=== PATIENT | female | born 1965 | race Caucasian/White ===

== ENCOUNTER 2017-09-19 13:47 | Observation (INO) | payer BC, OTHER ==
[2017-09-19] MEDS ORDERED: TORAdol 30 mg Injection IV ONE (14:09)
--- NOTE | 2017-09-19 14:16 | ERPHSYRPT ---
- History of Present Illness Time Seen by Provider: 09/19/17 14:00 Historian: patient Exam Limitations: no limitations Patient Subjective Stated Complaint: Pt states she started having pain in her shoulders last night. She started having chest pain this morning that radiated into her shoulders and arms. She feels like she might be a little short of breath. She was not doing anything physical when the pain started. She went to Dr. Bryant office and he recommended she be evaluated in the ER. Triage Nursing Assessment: Pt alert and oriented x3. skin pink warm and dry. afebrile. heart tones RRR. no edema noted. lung sounds clear Physician History: 52 y/o female with history of SVT comes to the ER with complaints of chest pain that started this morning. Pt describes the pain as pressure like, constant, 8/ 10, with radiation to bilateral shoulders and not relieved by tylenol. Pt also admits to shortness of breath, but denies any fever, chills, cough, palpitations , abdominal pain, nausea or vomiting. Last stress test was 2 years ago. Timing/Duration: today Activities at Onset: none Quality: pressure Location: substernal Severity of Pain-Max: severe Severity of Pain-Current: severe Modifying Factors: Improves With: nothing Associated Symptoms: shortness of breath Prior Chest Pain/Cardiac Workup: cardiac cath Nitro Today/Relief: no nitro taken today Aspirin Treatment Today: no aspirin today Allergies/Adverse Reactions: No Known Drug Allergies Allergy (Unverified 09/17/13 08:24) Home Medications: Digoxin 0.125 mg Tablet [Lanoxin 0.125MG TABLET] 0.125 mg PO DAILY [History] Famotidine 20 mg [Pepcid 20 MG] 20 mg PO DAILY 09/17/13 [History] Losartan/Hydrochlorothiazide [Losartan-Hctz 50-12.5 mg Tab] 1 each PO DAILY [History] Metformin HCl 500 mg [Glucophage 500 MG] 1,000 mg PO BID 09/17/13 [History ] Alprazolam 0.25 mg [xanAX 0.25 MG] 0.25 mg PO HS 09/19/17 [History] Aspirin EC 81 mg [Ecotrin 81 mg] 81 mg PO DAILY 09/19/17 [History] Atorvastatin Calcium [Lipitor] 10 mg PO QPM 09/19/17 [History] Calcium Carbonate/Vitamin D3 [Calcium 600 + Vit D Caplet] 1 each PO DAILY [History] Cholecalciferol (Vitamin D3) [Vitamin D3] 3,000 unit PO DAILY 09/19/17 [History] Duloxetine HCl 30 mg [Cymbalta 30 MG Capsule] 90 mg PO DAILY 09/19/17 [ History] Gabapentin [Neurontin] 300 mg PO TID 09/19/17 [History] Insulin Aspart [NovoLOG Insulin] 8 unit SQ UD 09/19/17 [History] Loratadine 10 mg [Claritin 10 mg] 10 mg PO DAILY 09/19/17 [History] Naproxen 500 mg [Naprosyn 500 MG] 500 mg PO BID 09/19/17 [History] PANTOPRAZOLE 40 mg Tablet [Protonix 40MG Tablet] 40 mg PO DAILY 09/19/17 [ History] Hx Tetanus, Diphtheria Vaccination/Date Given: Yes Hx Influenza Vaccination/Date Given: Yes Hx Pneumococcal Vaccination/Date Given: Yes - Review of Systems Constitutional: No Fever, No Chills Eyes: No Symptoms Ears, Nose, & Throat: No Symptoms Respiratory: Dyspnea, Dyspnea on Exertion (CARPIO), No Cough Cardiac: Chest Pain, No Edema, No Syncope Abdominal/Gastrointestinal: No Abdominal Pain, No Nausea, No Vomiting, No Diarrhea Genitourinary Symptoms: No Dysuria Musculoskeletal: Back Pain, No Neck Pain Skin: No Rash Neurological: No Dizziness, No Focal Weakness, No Sensory Changes Psychological: No Symptoms Endocrine: No Symptoms All Other Systems: Reviewed and Negative - Past Medical History Pertinent Past Medical History: Yes Neurological History: No Pertinent History ENT History: No Pertinent History Cardiac History: Angina, Arrhythmia, Hypertension Respiratory History: Pneumonia Endocrine Medical History: Diabetes Type II Musculoskeletal History: Osteoarthritis GI Medical History: No Pertinent History History: No Pertinent History Psycho-Social History: No Pertinent History Female Reproductive Disorders: No Pertinent History Other Medical History: SVT, poss fibromyalgia - Past Surgical History Past Surgical History: Yes Neuro Surgical History: No Pertinent History Cardiac: Cardiac Catheterization Respiratory: No Pertinent History Gastrointestinal: No Pertinent History Genitourinary: No Pertinent History Musculoskeletal: No Pertinent History Female Surgical History: Hysterectomy Other Surgical History: left heel debridement - Social History Smoking Status: Never smoker Exposure to second hand smoke: Yes Drug Use: none Patient Lives Alone: Yes - Female History Hx Now: No - Nursing Vital Signs Nursing Vital Signs: Initial Vital Signs Temperature 98.4 F 09/19/17 13:48 Pulse Rate 82 09/19/17 13:48 Respiratory Rate 22 09/19/17 13:48 Blood Pressure 120/67 09/19/17 13:48 O2 Sat by Pulse Oximetry 98 09/19/17 13:48 Pain Scale Pain Intensity 10 - Physical Exam General Appearance: mild distress, alert, anxiety Eye Exam: PERRL/EOMI, eyes nml inspection Ears, Nose, Throat Exam: normal ENT inspection, moist mucous membranes Neck Exam: normal inspection, non-tender, supple, full range of motion Respiratory Exam: normal breath sounds, chest tenderness, lungs clear, No respiratory distress Cardiovascular Exam: regular rate/rhythm, normal heart sounds, normal peripheral pulses Gastrointestinal/Abdomen Exam: soft, No tenderness, No mass Back Exam: normal inspection, No CVA tenderness, No vertebral tenderness Extremity Exam: normal inspection, normal range of motion Neurologic Exam: alert, oriented x 3, cooperative, normal mood/affect, sensation nml, No motor deficits Skin Exam: normal color, warm, dry SpO2: 98 Oxygen Delivery: Room Air - Course Nursing assessment & vital signs reviewed: Yes EKG Interpreted by Me: RATE, NORMAL AXIS, NORMAL INTERVALS, NORMAL QRS, NORMAL ST-T Ordered Tests: Active Orders 24 hr Category Date Time Status Merchandise Presentation Associate STAT Care 09/19/17 14:09 Active EKG-ER Only STAT Care 09/19/17 14:08 Active IV Insertion STAT Care 09/19/17 14:08 Active CHEST 1 VIEW (PORTABLE) Stat Exams 09/19/17 14:08 Completed CBC W DIFF Stat Lab 09/19/17 14:18 Completed CK-Creatinine Phosphokinase Stat Lab 09/19/17 14:18 Received CMP Stat Lab 09/19/17 14:18 Received D-DIMER QUANTITATION Stat Lab 09/19/17 14:31 Completed NT PRO BNP Stat Lab 09/19/17 14:18 Received PROTIME WITH INR Stat Lab 09/19/17 14:31 Completed PTT Stat Lab 09/19/17 14:31 Completed TROPONIN Q3H Lab 09/19/17 14:36 Received TROPONIN Q3H Lab 09/19/17 16:20 Received TROPONIN Q3H Lab 09/19/17 20:15 Ordered TROPONIN Q3H Lab 09/19/17 23:15 Ordered TROPONIN Q3H Lab 09/20/17 02:15 Ordered Medication Summary Discontinued Medications Generic Name Dose Route Start Last Admin Trade Name Lorin PRN Reason Stop Dose Admin Ketorolac Tromethamine 30 mg 09/19/17 14:09 09/19/17 14:26 Toradol 30 Mg Injection IV 09/19/17 14:10 30 mg STAT ONE Administration Ketorolac Tromethamine Confirm 09/19/17 14:21 Toradol 30 Mg Injection Administered 09/19/17 14:22 Dose 30 mg .ROUTE .STK-MED ONE Morphine Sulfate 4 mg 09/19/17 15:50 09/19/17 15:57 Morphine Sulfate 4 Mg Inj IV 09/19/17 15:51 4 mg STAT ONE Administration Morphine Sulfate Confirm 09/19/17 15:56 Morphine Sulfate 4 Mg Inj Administered 09/19/17 15:57 Dose 4 mg .ROUTE .STK-MED ONE Ondansetron HCl 4 mg 09/19/17 15:50 09/19/17 15:57 Zofran 4 Mg/2 Ml Vial IV 09/19/17 15:51 4 mg STAT ONE Administration Ondansetron HCl Confirm 09/19/17 15:56 Zofran 4 Mg/2 Ml Vial Administered 09/19/17 15:57 Dose 4 mg .ROUTE .STK-MED ONE Lab/Rad Data: Laboratory Result Diagrams 09/19/17 14:18 Laboratory Results 09/19/17 09/19/17 Range/Units 14:31 14:18 WBC 10.7 H (4.0-10.5) K/mm3 RBC 4.85 (4.1-5.4) M/mm3 Hgb 16.2 H (12.0-16.0) gm/dl Hct 47.0 (35-47) % MCV 96.9 (78-100) fl MCH 33.4 H (26-32) pg MCHC 34.5 (32-36) g/dl RDW 13.0 (11.5-14.0) % Plt Count 197 (150-450) K/mm3 MPV 10.8 H (6-9.5) fl Gran % 70.5 H (36.0-66.0) % Eos # (Auto) 0.19 (0-0.5) Absolute Lymphs (auto) 1.83 (1.0-4.6) Absolute Monos (auto) 1.07 (0.0-1.3) Lymphocytes % 17.1 L (24.0-44.0) % Monocytes % 10.0 (0.0-12.0) % Eosinophils % 1.8 (0.00-5.0) % Basophils % 0.6 (0.0-0.4) % Absolute Granulocytes 7.56 H (1.4-6.9) Basophils # 0.06 (0-0.4) PT 13.2 H (9.95-12.35) SECONDS INR 1.19 (0.8-3.0) APTT 33.6 (25.3-37.0) SECONDS D-Dimer 414.77 (215-500) ng/mL - Progress Progress: improved Progress Note: 09/19/17 17:44 The patient is still having chest pain after receiving toradol and morphine. The EKG is normal. Pt has an elevated glucose and will be given a liter of fluids. The rest of the labs are unremarkable. Pt has been admitted to [facility] for chest pain. - Departure Time of Disposition: 17:45 Departure Disposition: In-patient Admission Clinical Impression: Chest pain Qualifiers: Chest pain type: unspecified Qualified Code(s): R07.9 - Chest pain, unspecified Condition: Stable Critical Care Time: No Referrals: CHASITY BLACKBURN MD [Primary Care Provider] -
[2017-09-19] MEDS ORDERED: TORAdol 30 mg Injection ONE (14:21)
[2017-09-19 14:27] LABS: BASOPHIL % 0.6 % (0.0-0.4); Basophil (Absolute #) 0.06 (0-0.4); Eosinophil % 1.8 % (0.00-5.0); Eosinophil (Absolute #) 0.19 (0-0.5); Granulocyte Absolute (ANC) 7.56 (1.4-6.9); Granulocytes % 70.5 % (36.0-66.0); Hemoglobin 16.2 gm/dl (12.0-16.0); Lymphocyte (Absolute #) 1.83 (1.0-4.6); Lymphocytes % 17.1 % (24.0-44.0); Mean Cell Volume 96.9 fl (78-100); Mean Corpuscular Hemoglobin 33.4 pg (26-32); Mean Corpuscular Hgb Concent. 34.5 g/dl (32-36); Mean Platelet Volume 10.8 fl (6-9.5); Monocyte (Absolute #) 1.07 (0.0-1.3); Platelet Count 197 K/mm3 (150-450); Red Blood Count 4.85 M/mm3 (4.1-5.4); White Blood Count 10.7 K/mm3 (4.0-10.5)
--- NOTE | 2017-09-19 14:45 | XRAY ---
Indication: Chest pain. Comparison: February 05, 2014. Portable chest again demonstrates normal heart or lungs. Bony thorax intact.
[2017-09-19 14:49] LABS: INR 1.19 (0.8-3.0)
[2017-09-19 14:51] LABS: D-DIMER QUANTITATION 414.77 ng/mL (215-500)
[2017-09-19 14:52] LABS: PTT 33.6 SECONDS (25.3-37.0)
[2017-09-19] MEDS ORDERED: MORPHINE SULFATE 4 MG INJ IV ONE (15:50)
[2017-09-19] MEDS ORDERED: Zofran 4 MG/2 ML VIAL IV ONE (15:50)
[2017-09-19] MEDS ORDERED: Zofran 4 MG/2 ML VIAL ONE (15:56)
[2017-09-19] MEDS ORDERED: MORPHINE SULFATE 4 MG INJ ONE (15:56)
[2017-09-19] MEDS ORDERED: Sodium Chloride 0.9% 1000 ML 1,000 ML IV STA (17:43)
[2017-09-19] MEDS ORDERED: TYLENOL 325 MG PO PRN (17:46)
[2017-09-19] MEDS ORDERED: MAALOX ES 30 ML UNIT DOSE PO PRN (17:46)
[2017-09-19] MEDS ORDERED: Senokot-S Tablet PO PRN (17:46)
[2017-09-19] MEDS ORDERED: MILK OF MAGNESIA 30 ML PO PRN (17:46)
[2017-09-19] MEDS ORDERED: Zofran 4 MG/2 ML VIAL IV PRN (17:46)
[2017-09-19] MEDS ORDERED: Sodium Chloride 0.9% 1000 ML 1,000 ML ONE (18:36)
[2017-09-19] MEDS ORDERED: TYLENOL 325 MG ONE (20:43)
[2017-09-19 21:47] LABS: ALBUMIN 3.4 g/dL (3.5-5.0); ALKALINE PHOSPHATASE 61 U/L (38-126); ANION GAP 13.8 MEQ/L (5-15); BLOOD UREA NITROGEN 17 mg/dL (7-17); CHLORIDE 98 mmol/L (98-107); Calcium 8.9 mg/dL (8.4-10.2); Carbon Dioxide 28 mmol/L (22-30); Creatinine 1 0.47 mg/dL (0.52-1.04); Glucose 180 mg/dL (74-106); Potassium 4.1 mmol/L (3.5-5.1); SGOT/AST 24 U/L (14-36); SGPT/ALT 38 U/L (0-35); SODIUM 135 mmol/L (137-145); Total Protein 6.1 g/dL (6.3-8.2)
[2017-09-19] MEDS ORDERED: COREG 12.5 MG PO ONE (22:00)
[2017-09-19] MEDS ORDERED: LIPITOR 40MG PO ONE (22:00)
[2017-09-19] MEDS ORDERED: Naprosyn 500 MG PO ONE (22:00)
[2017-09-19] MEDS ORDERED: Zocor 10MG ONE (22:00)
[2017-09-19] MEDS ORDERED: NEURONTIN 300 MG PO ONE (22:00)
[2017-09-19] MEDS ORDERED: xanAX 0.25 MG PO ONE (22:00)
[2017-09-19] MEDS: NovoLIN R SQ PRN (22:17)
[2017-09-20] MEDS: TYLENOL EXTRA STRENGTH 500 MG PO PRN ×3 (01:04→20:26)
[2017-09-20 06:05] LABS: Risk Ratio 3.4
[2017-09-20] MEDS: NovoLIN R SQ PRN ×3 (08:07→23:04)
--- NOTE | 2017-09-20 09:06 | PCM.HP ---
History of Present Illness - Chief Complaint Chief Complaint: chest pain History of Present Illness: is a 52 year old female.came to ER with chest for 3 days duration. C/ O generalised body pain all over - Review of Systems Constitutional: Fatigue, Malaise, No Fever, No Chills Eyes: No Symptoms Ears, Nose, & Throat: No Symptoms Respiratory: No Cough, No Short Of Breath Cardiac: Chest Pain, No Edema, No Syncope Abdominal/Gastrointestinal: No Abdominal Pain, No Nausea, No Vomiting, No Diarrhea Genitourinary Symptoms: No Dysuria Musculoskeletal: No Back Pain, No Neck Pain Skin: No Rash Neurological: No Dizziness, No Focal Weakness, No Sensory Changes Psychological: No Symptoms Endocrine: No Symptoms Hematologic/Lymphatic: No Symptoms Immunological/Allergic: No Symptoms Medications & Allergies Home Medications: Home Medication List Digoxin 0.125 mg Tablet [Lanoxin 0.125MG TABLET] 0.125 mg PO REPLACED BY [facility] 09/17/13 [History Confirmed 09/19/17] Famotidine 20 mg [Pepcid 20 MG] 20 mg PO REPLACED BY [facility] 09/17/13 [History Confirmed 09/19/17] Losartan/Hydrochlorothiazide [Losartan-Hctz 50-12.5 mg Tab] 1 tab PO DAILY 09/17 [History Confirmed 09/19/17] Metformin HCl 500 mg [Glucophage 500 MG] 1,000 mg PO BID 09/17/13 [ History Confirmed 09/19/17] Alprazolam 0.25 mg [xanAX 0.25 MG] 0.25 mg PO 09/19/17 [History Confirmed 09/19/17] Aspirin EC 81 mg [Ecotrin 81 mg] 81 mg PO REPLACED BY [facility] 09/19/17 [History Confirmed 09/19/17] Atorvastatin Calcium [Lipitor] 10 mg PO QPM 09/19/17 [History Confirmed 09/19/17 ] Calcium Carbonate/Vitamin D3 [Calcium 600 + Vit D Caplet] 1 each PO 09/19/17 [History Confirmed 09/19/17] Carvedilol 12.5 mg [Coreg 12.5 mg] 12.5 mg PO BID 09/19/17 [History Confirmed 09/19/17] Cholecalciferol (Vitamin D3) [Vitamin D3] 3,000 unit PO DAILY 09/19/17 [History Confirmed 09/19/17] Duloxetine HCl 30 mg [Cymbalta 30 MG Capsule] 90 mg PO QAM 09/19/17 [ History Confirmed 09/19/17] Gabapentin [Neurontin] 300 mg PO TID 09/19/17 [History Confirmed 09/19/17] Insulin Aspart [NovoLOG Insulin] 8 unit SQ UD 09/19/17 [History Confirmed ] Loratadine 10 mg [Claritin 10 mg] 10 mg PO QAM 09/19/17 [History Confirmed 09/19/17] Naproxen 500 mg [Naprosyn 500 MG] 500 mg PO BID 09/19/17 [History Confirmed 09/19/17] PANTOPRAZOLE 40 mg Tablet [Protonix 40MG Tablet] 40 mg PO QAM 09/19/17 [ History Confirmed 09/19/17] Allergies/Adverse Reactions: Allergies Allergy/AdvReac Type Severity Reaction Status Date / Time No Known Drug Allergies Allergy Unverified 09/17/13 08:24 - Past Medical History Past Medical History: Yes Neurological History: No Pertinent History ENT History: No Pertinent History Cardiac History: Angina, Arrhythmia, Hypertension Respiratory History: Pneumonia Endocrine Medical History: Diabetes Type II Musculoskelatal History: Osteoarthritis GI Medical History: No Pertinent History History: No Pertinent History Pyscho-Social History: No Pertinent History Reproductive Disorders: No Pertinent History Comment: SVT, poss fibromyalgia - Female History Are you now?: No (Hysterectomy) - Past Surgical History Past Surgical History: Yes Neuro Surgical History: No Pertinent History Cardiac History: Cardiac Catheterization Respiratory Surgery: No Pertinent History GI Surgical History: Cholecystectomy Genitourinary Surgical Hx: No Pertinent History Musculskeletal Surgical Hx: No Pertinent History Female Surgical History: Hysterectomy Other Surgical History: left heel debridement - Social History Smoking Status: Never smoker Exposure to second hand smoke: Yes ([id number]) Alcohol: None Drug Use: none - Physical Exam Vital Signs: Vital Signs - 24 hr Temp Pulse Pulse Resp BP Pulse Ox 09/20/17 04:00 98.1 F 73 18 112/72 03/27/18 00:00 98.0 F 81 18 96/55 89 L 09/19/17 21:46 95 09/19/17 20:20 98.4 F 88 18 106/55 95 09/19/17 20:00 99.2 F 88 18 106/55 95 09/19/17 17:46 98 09/19/17 17:46 95 09/19/17 14:47 93 H 16 116/64 96 09/19/17 13:48 98.4 F 83 82 22 120/67 98 Oxygen-Last 24 hours O2 Percentage 2 Liters = 28% Oxygen Flowrate (L/min)-RT 2 Oxygen Flowrate (L/min)-RT 2 Oxygen Flowrate (L/min)-RT 2 Oxygen Flowrate (L/min)-RT 2 General Appearance: no apparent distress, alert Neurologic Exam: alert, oriented x 3, cooperative, normal mood/affect, nml cerebellar function, nml station & gait, sensation nml, No motor deficits Eye Exam: PERRL/EOMI, eyes nml inspection Ears, Nose, Throat Exam: normal ENT inspection, TMs normal, pharynx normal, moist mucous membranes Neck Exam: normal inspection, non-tender, supple, full range of motion Respiratory Exam: normal breath sounds, lungs clear, No respiratory distress Cardiovascular Exam: regular rate/rhythm, normal heart sounds, normal peripheral pulses Gastrointestinal/Abdomen Exam: soft, normal bowel sounds, No tenderness, No mass Back Exam: normal inspection, normal range of motion, No CVA tenderness, No vertebral tenderness Extremity Exam: normal inspection, normal range of motion, pelvis stable Skin Exam: normal color, warm, dry, No rash Lymphatic Exam: No adenopathy Results - Labs Lab/Micro Results: Accuchecks Date 09/19/17 Time 22:00 Accucheck Value: 181 Lab Results-Last 24 Hours 09/19/17 09/19/17 09/19/17 Range/Units 20:20 20:23 23:35 Sodium 135 L (137-145) mmol/L Potassium 4.1 (3.5-5.1) mmol/L Chloride 98 (98-107) mmol/L Carbon Dioxide 28 (22-30) mmol/L Anion Gap 13.8 (5-15) MEQ/L BUN 17 (7-17) mg/dL Creatinine 0.47 L (0.52-1.04) mg/dL Estimated GFR > 60 ML/MIN Glucose 180 H (74-106) mg/dL Calcium 8.9 (8.4-10.2) mg/dL Total Bilirubin 2.70 H (0.2-1.3) mg/dL AST 24 (14-36) U/L ALT 38 H (0-35) U/L Alkaline Phosphatase 61 (38-126) U/L Troponin I < 0.012 < 0.012 (0.000-0.034) ng/mL Serum Total Protein 6.1 L (6.3-8.2) g/dL Albumin 3.4 L (3.5-5.0) g/dL Triglycerides (30-150) mg/dL Cholesterol (50-200) mg/dL LDL Cholesterol (30-100) mg/dL HDL Cholesterol (40-60) mg/dL Heart Disease Risk Ratio 09/20/17 09/20/17 Range/Units 02:40 05:15 Sodium (137-145) mmol/L Potassium (3.5-5.1) mmol/L Chloride (98-107) mmol/L Carbon Dioxide (22-30) mmol/L Anion Gap (5-15) MEQ/L BUN (7-17) mg/dL Creatinine (0.52-1.04) mg/dL Estimated GFR ML/MIN Glucose (74-106) mg/dL Calcium (8.4-10.2) mg/dL Total Bilirubin (0.2-1.3) mg/dL AST (14-36) U/L ALT (0-35) U/L Alkaline Phosphatase (38-126) U/L Troponin I < 0.012 (0.000-0.034) ng/mL Serum Total Protein (6.3-8.2) g/dL Albumin (3.5-5.0) g/dL Triglycerides 100 (30-150) mg/dL Cholesterol 100 (50-200) mg/dL LDL Cholesterol 47 (30-100) mg/dL HDL Cholesterol 29 L (40-60) mg/dL Heart Disease Risk Ratio 3.4 Accuchecks Date 09/19/17 Time 22:00 Accucheck Value: 181 - Other Procedures and Tests Respiratory Therapy 09/20/17 01:45 EKG ROUTINE 09/21/17 05:00 EKG ROUTINE 09/22/17 05:00 EKG ROUTINE 09/23/17 05:00 EKG ROUTINE Assessment/Plan (1) Chest pain Current Visit: Yes Status: Acute Qualifiers: Chest pain type: unspecified Qualified Code(s): R07.9 - Chest pain, unspecified Code(s): R07.9 - CHEST PAIN, UNSPECIFIED (2) Diabetes mellitus type 2 Current Visit: No Status: Chronic Code(s): E11.9 - TYPE 2 DIABETES MELLITUS WITHOUT COMPLICATIONS (3) Hypertensive disorder, systemic arterial Current Visit: Yes Status: Chronic Code(s): I27.2 - OTHER SECONDARY PULMONARY HYPERTENSION * DO NOT USE *
[2017-09-20] MEDS ORDERED: FLUCELVAX QUAD 2017-2018 SYR IM ONE (10:00)
[2017-09-20] MEDS ORDERED: Glucophage 500 MG PO SCH (10:00)
[2017-09-20] MEDS ORDERED: Ecotrin 325 MG PO SCH (10:00)
[2017-09-20] MEDS ORDERED: NON-FORMULARY ITEM (Losartan/Hydrochlorothiazide [Losartan-Hctz 50-12.5 Mg Tab] 1 TAB) PO SCH (10:00)
[2017-09-20] MEDS ORDERED: CHOLECALCIFEROL 3000 UNIT PO SCH (10:00)
[2017-09-20] MEDS: hydroDIURIL 25 MG PO SCH (10:49)
[2017-09-20] MEDS: CLARITIN 10 MG PO SCH (10:49)
[2017-09-20] MEDS: Naprosyn 500 MG PO SCH ×2 (10:49→23:03)
[2017-09-20] MEDS: HOLD METFORMIN PRODUCTS FOR 48 HOURS MC SCH (10:49)
[2017-09-20] MEDS: ECOTRIN 81 MG PO SCH (10:49)
[2017-09-20] MEDS: Cymbalta 30 MG Capsule PO SCH (10:49)
[2017-09-20] MEDS: Cozaar 50 MG PO SCH (10:49)
[2017-09-20] MEDS: Pepcid 20 MG PO SCH (10:50)
[2017-09-20] MEDS: NEURONTIN 300 MG PO SCH ×3 (10:50→23:04)
[2017-09-20] MEDS: Protonix 40MG Tablet PO SCH (10:50)
[2017-09-20] MEDS: VITAMIN D PO SCH (10:50)
--- NOTE | 2017-09-20 12:44 | XRAY ---
Indication: Pain and nausea. Multiple contiguous axial images obtained through the abdomen and pelvis using 80 cc Isovue 370 contrast only. Comparison: None Lung bases demonstrates mild bibasilar dependent atelectasis with tiny effusions. Heart is not enlarged. Noncontrasted stomach and bowel loops appear nonobstructed. There is mild diffuse scattered colonic fecal debris throughout. Normal appendix. Mild sigmoid diverticulosis without diverticulitis. No free fluid/air. Right kidney demonstrates a few patchy areas of cortical hypoattenuation/edema favoring pyelonephritis. No suspicious renal mass, hydronephrosis, or hydroureter. 2.5 cm noncalcified right adrenal gland mass. Mild fatty liver. Previous cholecystectomy and hysterectomy. Remaining liver, pancreas, spleen, left adrenal gland, left kidney, left ureter, bladder, and aorta appear unremarkable. No pathologic retroperitoneal lymphadenopathy. Osseous structures intact. Impression: 1. Right renal cortical patchy hypoattenuations/edema favoring pyelonephritis. 2. Fecal stasis without obstruction. Sigmoid diverticulosis without diverticulitis. 3. Fatty liver. 4. 2.5 cm noncalcified right adrenal gland mass. Findings possibly adenoma. Noncontrasted exam could confirm. CT DI 23.68
[2017-09-20] MEDS: NovoLOG Insulin SQ SCH ×2 (13:28→17:16)
[2017-09-20] MEDS: Lanoxin 0.125MG TABLET PO SCH (13:30)
[2017-09-20] MEDS: COREG 12.5 MG PO SCH ×2 (13:34→23:03)
[2017-09-20] MEDS ORDERED: Sodium Chloride 0.9% 1000 ML 1,000 ML ONE (17:33)
[2017-09-20 19:31] LABS: Appearance CLOUDY (CLEAR); Bilirubin NEGATIVE (NEGATIVE); Blood 50 Ery/ul (0-5); Glucose 250 mg/dL (NEGATIVE); Ketones NEGATIVE (NEGATIVE); Leukocyte Esterase 1+ (NEGATIVE); Nitrite NEGATIVE (NEGATIVE); Protein,Urine Dip NEGATIVE (Negative); Specific Gravity 1.015 (1.005-1.025); Urobilinogen 4 mg/dL (0-1)
[2017-09-20 19:32] LABS: Bacteria PACKED /HPF (NEGATIVE); Epithelial Cells MODERATE /HPF (FEW); Mucus MODERATE /HPF (NEGATIVE); WBC 25-50 /HPF (0-5)
[2017-09-20] MEDS ORDERED: Levofloxacin 500MG/100ML D5W 500 MG/100 ML BAG IV SCH (20:00)
[2017-09-20] MEDS ORDERED: VITAMIN D3 PO SCH (22:00)
[2017-09-20] MEDS ORDERED: CALCIUM CARBONATE PO SCH (22:00)
[2017-09-20] MEDS ORDERED: NON-FORMULARY ITEM (Atorvastatin Calcium [Lipitor] 10 MG) PO SCH (22:00)
[2017-09-20] MEDS ORDERED: Zocor 10MG PO ONE (22:00)
[2017-09-20] MEDS: Calcium 500MG W/Vit D Tablet PO SCH (23:03)
[2017-09-20] MEDS: xanAX 0.25 MG PO SCH (23:04)
[2017-09-20] MEDS: Zocor 10MG PO SCH (23:04)
[2017-09-21] MEDS: Sodium Chloride 0.9% 1000 ML 1,000 ML IV SCH ×3 (03:51→16:54)
[2017-09-21] MEDS: NovoLIN R SQ PRN ×4 (08:04→23:36)
[2017-09-21] MEDS: NovoLOG Insulin SQ SCH ×3 (08:04→16:50)
[2017-09-21] MEDS: Levofloxacin 500MG/100ML D5W 500 MG/100 ML BAG IV SCH (10:01)
[2017-09-21] MEDS: Cozaar 50 MG PO SCH (10:02)
[2017-09-21] MEDS: NEURONTIN 300 MG PO SCH ×3 (10:02→22:05)
[2017-09-21] MEDS: VITAMIN D PO SCH (10:02)
[2017-09-21] MEDS: Lanoxin 0.125MG TABLET PO SCH (10:02)
[2017-09-21] MEDS: Pepcid 20 MG PO SCH (10:02)
[2017-09-21] MEDS: ECOTRIN 81 MG PO SCH (10:02)
[2017-09-21] MEDS: Cymbalta 30 MG Capsule PO SCH (10:02)
[2017-09-21] MEDS: Naprosyn 500 MG PO SCH ×2 (10:02→22:03)
[2017-09-21] MEDS: CLARITIN 10 MG PO SCH (10:02)
[2017-09-21] MEDS: Protonix 40MG Tablet PO SCH (10:02)
[2017-09-21] MEDS: TYLENOL EXTRA STRENGTH 500 MG PO PRN ×2 (10:03→22:04)
[2017-09-21] MEDS: hydroDIURIL 25 MG PO SCH (10:09)
[2017-09-21] MEDS: HOLD METFORMIN PRODUCTS FOR 48 HOURS MC SCH (10:09)
[2017-09-21] MEDS: COREG 12.5 MG PO SCH ×2 (10:10→22:03)
--- NOTE | 2017-09-21 12:16 | PCM.NOTE ---
Date and Time: 09/21/17 1215 Subjective Assessment: doing better - Review of Systems Constitutional: No Fever, No Chills Eyes: No Symptoms Ears, Nose, & Throat: No Symptoms Respiratory: No Cough, No Short Of Breath Cardiac: No Chest Pain, No Edema, No Syncope Abdominal/Gastrointestinal: No Abdominal Pain, No Nausea, No Vomiting, No Diarrhea Genitourinary Symptoms: No Dysuria Musculoskeletal: No Back Pain, No Neck Pain Skin: No Rash Neurological: No Dizziness, No Focal Weakness, No Sensory Changes Psychological: No Symptoms Endocrine: No Symptoms Hematologic/Lymphatic: No Symptoms Immunological/Allergic: No Symptoms Objective Exam General Appearance: no apparent distress, alert Neurologic Exam: alert, oriented x 3, cooperative, normal mood/affect, nml cerebellar function, sensation nml, No motor deficits Skin Exam: normal color, warm, dry Eye Exam: PERRL, EOMI, eyes nml inspection Ears, Nose, Throat Exam: normal ENT inspection, pharynx normal, moist mucous membranes Neck Exam: normal inspection, non-tender, supple, full range of motion Respiratory Exam: normal breath sounds, lungs clear, No respiratory distress Cardiovascular Exam: regular rate/rhythm, normal heart sounds Gastrointestinal/Abdomen Exam: soft, No tenderness, No mass Extremity Exam: normal inspection, normal range of motion Back Exam: normal inspection, normal range of motion, No CVA tenderness, No vertebral tenderness Pelvic Exam: deferred Rectal Exam: deferred OBJECTIVE DATA Vital Signs: Vital Signs - 24 hr Temp Pulse Resp BP Pulse Ox 09/21/17 08:23 93 L 09/21/17 07:44 97.9 F 71 17 105/51 91 L 09/21/17 05:00 98.2 F 77 16 107/57 93 L 09/21/17 01:00 98.8 F 80 18 121/63 95 09/20/17 23:25 92 L 09/20/17 21:00 98.2 F 81 19 105/57 93 L 09/20/17 16:27 98.0 F 68 18 112/57 93 L 09/20/17 13:00 98.0 F 73 18 110/70 92 L Oxygen-Last 24 hours O2 Percentage 2 Liters = 28% O2 Percentage 3 Liters = 32% O2 Percentage 3 Liters = 32% O2 Percentage 2 Liters = 28% O2 Percentage 2 Liters = 28% Pain Assessment - Last Documented Pain Intensity 6 Pain Scale Used 0-10 Pain Scale Intake and Output: Intake & Output 09/19/17 09/20/17 09/21/17 09/22/17 11:59 11:59 11:59 11:59 Intake Total 3002 2596 Output Total 1400 2600 Balance 1602 -4 Weight 116 kg 115.1 kg Lab Results: Accuchecks Date 09/20/17 Time 16:00 Accucheck Value: 212 Accucheck Value: 240 Accucheck Value: 180 Lab Results-Last 24 Hours 09/20/17 09/20/17 Range/Units 05:00 19:09 Hemoglobin A1c 7.84 H (4.5-6.0) % Ur Collection Type VOID Urine Color YELLOW (YELLOW) Urine Appearance CLOUDY (CLEAR) Urine pH 6.0 (5-6) Ur Specific [place] 1.015 (1.005-1.025) Urine Protein NEGATIVE (Negative) Urine Ketones NEGATIVE (NEGATIVE) Urine Blood 50 (0-5) August/ul Urine Nitrite NEGATIVE (NEGATIVE) Urine Bilirubin NEGATIVE (NEGATIVE) Urine Urobilinogen 4 (0-1) mg/dL Ur Leukocyte Esterase 1+ (NEGATIVE) Urine Microscopic RBC 5-10 (0-2) /HPF Urine Microscopic WBC 25-50 (0-5) /HPF Ur Epithelial Cells MODERATE (FEW) /HPF Urine Bacteria PACKED (NEGATIVE) /HPF Urine Mucus MODERATE (NEGATIVE) /HPF Urine Glucose 250 (NEGATIVE) mg/dL Specimen Received 09/20/17 1800 Radiology Exams: Radiology Procedures Category Date Time Status ABDOMEN AND PELVIS W CONTRAST [CT] Routine Exams 09/20/17 10:04 Completed Multi-Disciplinary Progress Notes: Multi-Disciplinary Progress Notes 09/21/17 09:49 Case Management Note by Alicia Ortega Talked with LUIZ BLOCK regarding needs at time of discharge. Patient reports residing at home and plans on returning to there upon discharge. Discharge questionaire reviewed with patient. Pt lives alone but denies needing assistance at home at this time, however pt is currently on oxygen per nasal cannula so if she is to be discharged today, may need home O2 set up. She prefers [facility] as she has used them in the past. Will continue to follow for all Discharge needs. Initialized on 09/21/17 09:49 - END OF NOTE Assessment/Plan (1) Chest pain Current Visit: Yes Status: Resolved Qualifiers: Chest pain type: unspecified Qualified Code(s): R07.9 - Chest pain, unspecified Code(s): R07.9 - CHEST PAIN, UNSPECIFIED (2) Diabetes mellitus type 2 Current Visit: Yes Status: Chronic Code(s): E11.9 - TYPE 2 DIABETES MELLITUS WITHOUT COMPLICATIONS (3) Hypertensive disorder, systemic arterial Current Visit: Yes Status: Chronic Code(s): I27.2 - OTHER SECONDARY PULMONARY HYPERTENSION * DO NOT USE * (4) Pyelonephritis Current Visit: Yes Status: Acute Code(s): N12 - TUBULO-INTERSTITIAL NEPHRITIS, NOT [facility] ACUTE OR CHRONIC
[2017-09-21] MEDS: xanAX 0.25 MG PO SCH (22:03)
[2017-09-21] MEDS: Calcium 500MG W/Vit D Tablet PO SCH (22:04)
[2017-09-21] MEDS: Zocor 10MG PO SCH (22:04)
[2017-09-22] MEDS: Sodium Chloride 0.9% 1000 ML 1,000 ML IV SCH ×2 (03:02→14:02)
[2017-09-22] MEDS: Glucophage 500 MG PO SCH ×2 (08:20→17:37)
[2017-09-22] MEDS: NovoLIN R SQ PRN ×3 (08:21→17:37)
[2017-09-22] MEDS: NovoLOG Insulin SQ SCH ×3 (08:21→17:37)
[2017-09-22] MEDS: Levofloxacin 500MG/100ML D5W 500 MG/100 ML BAG IV SCH (10:10)
[2017-09-22] MEDS: Naprosyn 500 MG PO SCH ×2 (10:11→22:56)
[2017-09-22] MEDS: Lanoxin 0.125MG TABLET PO SCH (10:11)
[2017-09-22] MEDS: hydroDIURIL 25 MG PO SCH (10:11)
[2017-09-22] MEDS: Cymbalta 30 MG Capsule PO SCH (10:11)
[2017-09-22] MEDS: NEURONTIN 300 MG PO SCH ×3 (10:11→22:56)
[2017-09-22] MEDS: Cozaar 50 MG PO SCH (10:11)
[2017-09-22] MEDS: ECOTRIN 81 MG PO SCH (10:12)
[2017-09-22] MEDS: VITAMIN D PO SCH (10:12)
[2017-09-22] MEDS: Pepcid 20 MG PO SCH (10:12)
[2017-09-22] MEDS: CLARITIN 10 MG PO SCH (10:12)
[2017-09-22] MEDS: COREG 12.5 MG PO SCH ×2 (10:13→22:56)
[2017-09-22] MEDS: HOLD METFORMIN PRODUCTS FOR 48 HOURS MC SCH (10:20)
[2017-09-22] MEDS: TYLENOL EXTRA STRENGTH 500 MG PO PRN (10:23)
[2017-09-22] MEDS: Protonix 40MG Tablet PO SCH (10:26)
--- NOTE | 2017-09-22 13:00 | PCM.NOTE ---
Date and Time: 09/22/17 1259 Subjective Assessment: doing ok - Review of Systems Constitutional: No Fever, No Chills Eyes: No Symptoms Ears, Nose, & Throat: No Symptoms Respiratory: No Cough, No Short Of Breath Cardiac: No Chest Pain, No Edema, No Syncope Abdominal/Gastrointestinal: No Abdominal Pain, No Nausea, No Vomiting, No Diarrhea Genitourinary Symptoms: No Dysuria Musculoskeletal: No Back Pain, No Neck Pain Skin: No Rash Neurological: No Dizziness, No Focal Weakness, No Sensory Changes Psychological: No Symptoms Endocrine: No Symptoms Hematologic/Lymphatic: No Symptoms Immunological/Allergic: No Symptoms Objective Exam General Appearance: no apparent distress, alert Neurologic Exam: alert, oriented x 3, cooperative, normal mood/affect, nml cerebellar function, sensation nml, No motor deficits Skin Exam: normal color, warm, dry Eye Exam: PERRL, EOMI, eyes nml inspection Ears, Nose, Throat Exam: normal ENT inspection, pharynx normal, moist mucous membranes Neck Exam: normal inspection, non-tender, supple, full range of motion Respiratory Exam: normal breath sounds, lungs clear, No respiratory distress Cardiovascular Exam: regular rate/rhythm, normal heart sounds Gastrointestinal/Abdomen Exam: soft, No tenderness, No mass Extremity Exam: normal inspection, normal range of motion Back Exam: normal inspection, normal range of motion, No CVA tenderness, No vertebral tenderness Pelvic Exam: deferred Rectal Exam: deferred OBJECTIVE DATA Vital Signs: Vital Signs - 24 hr Temp Pulse Resp BP BP Pulse Ox 09/22/17 11:50 97.9 F 63 16 102/58 95 09/22/17 10:11 67 98/52 09/22/17 07:39 97.8 F 67 18 98/52 94 L 09/22/17 05:38 104/57 09/22/17 04:54 98.0 F 70 16 86/43 93 L 09/22/17 00:32 97.8 F 69 18 106/57 94 L 09/21/17 23:37 90 L 09/21/17 20:49 97.6 F 73 18 117/55 94 L 09/21/17 16:00 97.8 F 70 18 119/66 95 09/21/17 13:00 80 18 99/51 95 Oxygen-Last 24 hours O2 Percentage 3 Liters = 32% O2 Percentage 2 Liters = 28% Pain Assessment - Last Documented Pain Intensity 7 Pain Scale Used 0-10 Pain Scale Intake and Output: Intake & Output 09/20/17 09/21/17 09/22/17 09/23/17 11:59 11:59 11:59 11:59 Intake Total 3002 2596 4690 240 Output Total 1400 2600 2100 Balance 1602 -4 2590 240 Weight 116 kg 115.1 kg 115.5 kg Lab Results: Accuchecks Date 09/22/17 Date 09/22/17 Date 09/21/18 Time 11:30 Time 07:30 Time 21:00 Accucheck Value: 237 Accucheck Value: 204 Accucheck Value: 295 Accucheck Value: 234 Assessment/Plan (1) Chest pain Current Visit: Yes Status: Resolved Qualifiers: Chest pain type: unspecified Qualified Code(s): R07.9 - Chest pain, unspecified Code(s): R07.9 - CHEST PAIN, UNSPECIFIED (2) Diabetes mellitus type 2 Current Visit: Yes Status: Chronic Code(s): E11.9 - TYPE 2 DIABETES MELLITUS WITHOUT COMPLICATIONS (3) Hypertensive disorder, systemic arterial Current Visit: Yes Status: Chronic Code(s): I27.2 - OTHER SECONDARY PULMONARY HYPERTENSION * DO NOT USE * (4) Pyelonephritis Current Visit: Yes Status: Acute Code(s): N12 - TUBULO-INTERSTITIAL NEPHRITIS, NOT SPCF ACUTE OR CHRONIC
[2017-09-22] MEDS ORDERED: MORPHINE SULFATE 4 MG INJ IV PRN (13:05)
[2017-09-22] MEDS: Zocor 10MG PO SCH (22:56)
[2017-09-22] MEDS: xanAX 0.25 MG PO SCH (22:56)
[2017-09-22] MEDS: Calcium 500MG W/Vit D Tablet PO SCH (22:57)
[2017-09-23] MEDS: Sodium Chloride 0.9% 1000 ML 1,000 ML IV SCH (03:44)
[2017-09-23] MEDS: hydroDIURIL 25 MG PO SCH (08:29)
[2017-09-23] MEDS: VITAMIN D PO SCH (08:29)
[2017-09-23] MEDS: Cozaar 50 MG PO SCH (08:29)
[2017-09-23] MEDS: Lanoxin 0.125MG TABLET PO SCH (08:30)
[2017-09-23] MEDS: NEURONTIN 300 MG PO SCH (08:30)
[2017-09-23] MEDS: Cymbalta 30 MG Capsule PO SCH (08:30)
[2017-09-23] MEDS: ECOTRIN 81 MG PO SCH (08:31)
[2017-09-23] MEDS: Glucophage 500 MG PO SCH (08:31)
[2017-09-23] MEDS: Protonix 40MG Tablet PO SCH (08:32)
[2017-09-23] MEDS: COREG 12.5 MG PO SCH (08:32)
[2017-09-23] MEDS: CLARITIN 10 MG PO SCH (08:32)
[2017-09-23] MEDS: Pepcid 20 MG PO SCH (08:32)
[2017-09-23] MEDS: Naprosyn 500 MG PO SCH (08:32)
[2017-09-23] MEDS: NovoLOG Insulin SQ SCH ×2 (08:32→11:53)
[2017-09-23] MEDS ORDERED: FLUCELVAX QUAD 2017-2018 SYR IM ONE (09:00)
[2017-09-23] MEDS: Levofloxacin 500MG/100ML D5W 500 MG/100 ML BAG IV SCH (09:35)
[2017-09-23] MEDS: NovoLIN R SQ PRN (11:54)
[2017-09-23 13:07] VITALS: BP 127/72; PULSE 70; O2SAT 95
--- NOTE | 2017-09-23 13:17 | PCM.DS ---
Discharge Summary Date of Admission: 09/19/17 18:45 Admitting Physician: CHASITY BLACKBURN Primary Care Provider: CHASITY BLACKBURN Allergies Allergies No Known Drug Allergies Allergy (Unverified 09/17/13 08:24) Hospital Summary - Hospital Course Hospital Course: Chief Complaint Diagnosis chest pain Allergies Allergy/AdvReac Type Severity Reaction Status Date / Time No Known Drug Allergies Allergy Unverified 09/17/13 08:24 Vital Signs (Last 24 hours) Temp Pulse Resp BP Pulse Ox 09/23/17 13:06 70 20 127/72 95 09/23/17 08:30 68 09/23/17 07:09 97.8 F 68 20 100/55 91 L 09/23/17 04:52 97.9 F 68 17 111/66 92 L 09/23/17 00:43 98.2 F 68 18 129/79 94 L 09/22/17 20:51 97.9 F 71 18 127/76 94 L 09/22/17 20:50 68 18 94 L 09/22/17 16:54 97.8 F 70 18 101/49 92 L Home Medications Medication Instructions Recorded Confirmed Last Taken Type Alprazolam 0.25 mg [xanAX 0.25 0.25 mg PO HS 09/19/17 09/19/17 09/18/17 History MG] Aspirin EC 81 mg [Ecotrin 81 81 mg PO [facility] 09/19/17 09/19/17 09/19/17 History mg] Atorvastatin Calcium [Lipitor] 10 mg PO QPM 09/19/17 09/19/17 09/18/17 History Calcium Carbonate/Vitamin D3 1 each PO HS 09/19/17 09/19/17 09/18/17 History [Calcium 600 + Vit D Caplet] Carvedilol 12.5 mg [Coreg 12.5 12.5 mg PO BID 09/19/17 09/19/17 09/19/17 History mg] Cholecalciferol (Vitamin D3) 3,000 unit PO DAILY 09/19/17 09/19/17 09/19/17 History [Vitamin D3] Duloxetine HCl 30 mg [Cymbalta 90 mg PO QAM 09/19/17 09/19/17 09/19/17 History 30 MG Capsule] Gabapentin [Neurontin] 300 mg PO TID 09/19/17 09/19/17 09/19/17 History Insulin Aspart [NovoLOG 8 unit SQ UD 09/19/17 09/19/17 09/19/17 History Insulin] Loratadine 10 mg [Claritin 10 10 mg PO QAM 09/19/17 09/19/17 09/19/17 History mg] Naproxen 500 mg [Naprosyn 500 500 mg PO BID 09/19/17 09/19/17 09/19/17 History MG] PANTOPRAZOLE 40 mg Tablet 40 mg PO QAM 09/19/17 09/19/17 09/19/17 History [Protonix 40MG Tablet] Current Medications Generic Name Dose Route Start Last Admin Trade Name Freq PRN Reason Stop Dose Admin Acetaminophen 500 mg 09/19/17 22:00 09/22/17 10:23 Tylenol Extra Strength 500 Mg PO 10/19/17 21:59 500 mg Q6H PRN Administration PAIN Al Hydrox/Mg Hydrox/Simethicone 30 ml 09/19/17 17:46 Maalox Es 30 Ml Unit Dose PO 10/19/17 17:45 Q4H PRN PRN INDIGESTION Alprazolam 0.25 mg 09/20/17 22:00 09/22/17 22:56 Xanax 0.25 Mg PO 10/20/17 21:59 0.25 mg HS JACLYN Administration Aspirin 81 mg 09/20/17 10:00 09/23/17 08:31 Ecotrin 81 Mg PO 10/20/17 09:59 81 mg QAM JACLYN Administration Calcium Carbonate 1 tab 09/20/17 22:00 09/22/17 22:57 Calcium 500mg W/Vit D Tablet PO 10/20/17 21:59 1 tab HS JACLYN Administration Carvedilol 12.5 mg 09/20/17 10:00 09/23/17 08:32 Coreg 12.5 Mg PO 10/20/17 09:59 12.5 mg BID JACLYN Administration Cholecalciferol 3,000 unit 09/20/17 10:00 09/23/17 08:29 Vitamin D PO 10/20/17 09:59 3,000 unit QAM JACLYN Administration Digoxin 0.125 mg 09/20/17 10:00 09/23/17 08:30 Lanoxin 0.125mg Tablet PO 10/20/17 09:59 0.125 mg QAM JACLYN Administration Duloxetine HCl 90 mg 09/20/17 10:00 09/23/17 08:30 Cymbalta 30 Mg Capsule PO 10/20/17 09:59 90 mg QAM JACLYN Administration Famotidine 20 mg 09/20/17 10:00 09/23/17 08:32 Pepcid 20 Mg PO 10/20/17 09:59 20 mg QAM JACLYN Administration Gabapentin 300 mg 09/20/17 10:00 09/23/17 08:30 Neurontin 300 Mg PO 10/20/17 09:59 300 mg TID JACLYN Administration Hydrochlorothiazide 12.5 mg 09/20/17 10:00 09/23/17 08:29 Hydrodiuril 25 Mg PO 10/20/17 09:59 12.5 mg QAM JACLYN Administration Sodium Chloride 1,000 mls @ 100 mls/hr 09/20/17 17:30 09/23/17 03:44 Sodium Chloride 0.9% 1000 Ml IV 10/20/17 17:29 100 mls/hr .Q10H JACLYN Administration Levofloxacin/Dextrose 500 mg in 100 mls @ 100 mls/hr 09/21/17 10:00 09/23/17 09:35 Levofloxacin 500mg/100ml D5w IV 10/21/17 09:59 100 mls/hr Q24H10 JACLYN Administration Insulin Aspart 8 unit 09/20/17 12:00 09/23/17 11:53 Novolog Insulin SQ 10/20/17 11:59 8 unit TIDWM JACLYN Administration Insulin Human Regular 0 unit 09/19/17 17:46 09/23/17 11:54 Novolin R SQ 10/19/17 17:45 5 unit PRN PRN Administration HYPERGLYCEMIA Loratadine 10 mg 09/20/17 10:00 09/23/17 08:32 Claritin 10 Mg PO 10/20/17 09:59 10 mg QAM JACLYN Administration Losartan Potassium 50 mg 09/20/17 10:00 09/23/17 08:29 Cozaar 50 Mg PO 10/20/17 09:59 50 mg DAILY JACLYN Administration Magnesium Hydroxide 30 - 60 ml 09/19/17 17:46 Milk Of Magnesia 30 Ml PO 10/19/17 17:45 QDP PRN CONSTIPATION Metformin HCl 1,000 mg 09/22/17 08:00 09/23/17 08:31 Glucophage 500 Mg PO 10/22/17 07:59 1,000 mg BIDWMEALS JACLYN Administration Morphine Sulfate 4 mg 09/22/17 13:05 Morphine Sulfate 4 Mg Inj IV 09/27/17 13:04 Q4H PRN PRN PAIN Naproxen 500 mg 09/20/17 10:00 09/23/17 08:32 Naprosyn 500 Mg PO 10/20/17 09:59 500 mg BID JACLYN Administration Ondansetron HCl 4 mg 09/19/17 17:46 Zofran 4 Mg/2 Ml Vial IV 10/19/17 17:45 Q4H PRN PRN NAUSEA/VOMITING Pantoprazole Sodium 40 mg 09/20/17 10:00 09/23/17 08:32 Protonix 40mg Tablet PO 10/20/17 09:59 40 mg QAM JACLYN Administration Senna/Docusate Sodium 2 udtab 09/19/17 17:46 Senokot-S Tablet PO 10/19/17 17:45 BID PRN PRN CONSTIPATION Simvastatin 10 mg 09/20/17 22:00 09/22/17 22:56 Zocor 10mg PO 10/20/17 21:59 10 mg HS JACLYN Administration Discontinued Medications Generic Name Dose Route Start Last Admin Trade Name Freq PRN Reason Stop Dose Admin Acetaminophen 650 mg 09/19/17 17:46 09/19/17 20:44 Tylenol 325 Mg PO 10/19/17 17:45 650 mg Q4H PRN PRN Administration PAIN AND/OR FEVER Acetaminophen Confirm 09/19/17 20:43 Tylenol 325 Mg Administered 09/19/17 20:44 Dose 650 mg .ROUTE .STK-MED ONE Alprazolam 0.25 mg 09/19/17 22:00 09/19/17 22:11 Xanax 0.25 Mg PO 09/19/17 22:01 0.25 mg ONCE ONE Administration Aspirin 325 mg 09/20/17 10:00 Ecotrin 325 Mg PO 10/20/17 09:59 DAILY [facility] Atorvastatin Calcium 10 mg 09/19/17 22:00 09/19/17 23:50 Lipitor 40mg PO 09/19/17 22:01 Not Given ONCE ONE Carvedilol 12.5 mg 09/19/17 22:00 09/19/17 22:10 Coreg 12.5 Mg PO 09/19/17 22:01 12.5 mg ONCE ONE Administration Gabapentin 300 mg 09/19/17 22:00 09/19/17 22:11 Neurontin 300 Mg PO 09/19/17 22:01 300 mg ONCE ONE Administration Sodium Chloride 1,000 mls @ 999 mls/hr 09/19/17 17:43 09/19/17 18:35 Sodium Chloride 0.9% 1000 Ml IV 09/19/17 18:43 999 mls/hr .Q1H1M STA Administration Sodium Chloride Confirm 09/19/17 18:36 Sodium Chloride 0.9% 1000 Ml Administered 09/19/17 18:37 Dose 1,000 mls @ ud .ROUTE .STK-MED ONE Levofloxacin/Dextrose 500 mg in 100 mls @ 100 mls/hr 09/20/17 20:00 Levofloxacin 500mg/100ml D5w IV 10/20/17 19:59 Q24H10 [facility] Sodium Chloride Confirm 09/20/17 17:33 Sodium Chloride 0.9% 1000 Ml Administered 09/20/17 17:34 Dose 1,000 mls @ ud .ROUTE .STK-MED ONE Influenza Virus Vaccine Quadrival 60 mcg 09/23/17 09:00 09/23/17 09:34 Flucelvax Quad 9168-1013 Syr IM 09/23/17 09:01 60 mcg .ONCE ONE Administration Ketorolac Tromethamine 30 mg 09/19/17 14:09 09/19/17 14:26 Toradol 30 Mg Injection IV 09/19/17 14:10 30 mg STAT ONE Administration Ketorolac Tromethamine Confirm 09/19/17 14:21 Toradol 30 Mg Injection Administered 09/19/17 14:22 Dose 30 mg .ROUTE .STK-MED ONE Metformin HCl 1,000 mg 09/20/17 10:00 Glucophage 500 Mg PO 10/20/17 09:59 BIDWMEALS JACLYN Morphine Sulfate 4 mg 09/19/17 15:50 09/19/17 15:57 Morphine Sulfate 4 Mg Inj IV 09/19/17 15:51 4 mg STAT ONE Administration Morphine Sulfate Confirm 09/19/17 15:56 Morphine Sulfate 4 Mg Inj Administered 09/19/17 15:57 Dose 4 mg .ROUTE .STK-MED ONE Non-Formulary Medication 1 each 09/20/17 10:00 09/22/17 10:20 Hold Metformin Products For 48 Hours 09/22/17 10:01 1 each DAILY JACLYN Administration Ondansetron HCl 4 mg 09/19/17 15:50 09/19/17 15:57 Zofran 4 Mg/2 Ml Vial IV 09/19/17 15:51 4 mg STAT ONE Administration Ondansetron HCl Confirm 09/19/17 15:56 Zofran 4 Mg/2 Ml Vial Administered 09/19/17 15:57 Dose 4 mg .ROUTE .STK-MED ONE Simvastatin Confirm 09/19/17 22:00 Zocor 10mg Administered 09/19/17 22:01 Dose 10 mg .ROUTE .STK-MED ONE Simvastatin 10 mg 09/20/17 22:00 09/19/17 22:16 Zocor 10mg PO 09/20/17 22:01 10 mg ONCE ONE Administration Intake & Output (Last 24 hours) 09/21/17 09/22/17 09/23/17 09/24/17 11:59 11:59 11:59 11:59 Intake Total 2596 4690 2895 420 Output Total 2600 2100 1000 1000 Balance -4 2590 1895 -580 Weight 115.1 kg 115.5 kg 115.4 kg Orders (Last 24 hours) Category Date Time Status Flu Vac Qs 17-18(4Yr Up)Kimberly/Pf [Flucelvax Quad 2017- Med 09/23/17 09:00 Discontinued 2018 Syr] 60 mcg IM .ONCE ONE Morphine Sulfate 4 mg Inj Med 09/22/17 13:05 Active 4 mg IV Q4H PRN PRN EKG ROUTINE RT 09/23/17 05:00 Completed Patient Care Notes (Last 24 hours) 09/23/17 10:17 Respiratory Note by Saul Salazar PT O2 SAT WAS 87% AT REST ON ROOM AIR. Initialized on 09/23/17 10:17 - END OF NOTE - Vitals & Intake/Output Vital Signs: Vital Signs Temperature 97.8 F 09/23/17 07:09 Pulse Rate 70 09/23/17 13:06 Respiratory Rate 20 09/23/17 13:06 Blood Pressure 127/72 09/23/17 13:06 O2 Sat by Pulse Oximetry 95 09/23/17 13:06 Oxygen-Last Documented O2 Percentage 2 Liters = 28% Intake & Output: Intake & Output 09/21/17 09/22/17 09/23/17 09/24/17 11:59 11:59 11:59 11:59 Intake Total 2596 4690 2895 420 Output Total 2600 2100 1000 1000 Balance -4 2590 1895 -580 Weight 115.1 kg 115.5 kg 115.4 kg - Lab Result Diagrams: 09/19/17 14:18 09/19/17 20:20 Lab Results-Last 24 Hrs: Accuchecks Date 09/23/17 Date 09/23/17 Date 09/22/17 Date 09/22/17 Time 11:30 Time 07:30 Time 21:00 Time 16:30 Accucheck Value: 188 Accucheck Value: 121 Accucheck Value: 216 Accucheck Value: 214 Micro Results-Entire Visit: Accuchecks Date 09/23/1709/23/17 Date 09/22/17 Date 09/22/17 Time 11:30 Time 07:30 Time 21:00 Time 16:30 Accucheck Value: 188 Accucheck Value: 121 Accucheck Value: 216 Accucheck Value: 214 - Procedures and Test Procedures and Tests throughout Hospitalization: Therapy Orders & Screens 09/20/17 01:45 EKG ROUTINE Comment: Diagnosis: chest pain 09/20/17 23:24 Oxygen NASAL CANNULA 2 lpm Comment: Diagnosis: chest pain 09/21/17 05:00 EKG ROUTINE Comment: Diagnosis: chest pain 09/22/17 05:00 EKG ROUTINE Comment: Diagnosis: chest pain 09/23/17 05:00 EKG ROUTINE Comment: Diagnosis: chest pain Discharge Exam General Appearance: no apparent distress, alert Neurologic Exam: alert, oriented x 3, cooperative, normal mood/affect, nml cerebellar function, sensation nml, No motor deficits Skin Exam: normal color, warm, dry Eye Exam: PERRL, EOMI, eyes nml inspection Ears, Nose, Throat Exam: normal ENT inspection, pharynx normal, moist mucous membranes Neck Exam: normal inspection, non-tender, supple, full range of motion Respiratory Exam: normal breath sounds, lungs clear, No respiratory distress Cardiovascular Exam: regular rate/rhythm, normal heart sounds Gastrointestinal/Abdomen Exam: soft, No tenderness, No mass Extremity Exam: normal inspection, normal range of motion Back Exam: normal inspection, normal range of motion, No CVA tenderness, No vertebral tenderness Pelvic Exam: deferred Rectal Exam: deferred Final Diagnosis/Problem List - Final Discharge Diagnosis/Problem (1) Pyelonephritis Current Visit: Yes Status: Acute Onset Date: ~09/19/17 Assessment & Plan: will d/c home with levaquin 500 mg po daily for 5 days (2) Chest pain Current Visit: Yes Status: Resolved Onset Date: ~09/19/17 (3) Diabetes mellitus type 2 Current Visit: Yes Status: Chronic Onset Date: ~09/19/17 (4) Hypertensive disorder, systemic arterial Current Visit: Yes Status: Chronic Onset Date: ~09/19/17 (5) Hypoxemia Current Visit: Yes Status: Acute - Discharge Discharge Date: 09/23/17 Disposition: Home, Self-Care Condition: Stable Prescriptions: New Levofloxacin [Levaquin] 500 mg PO DAILY #7 tablet Continue Metformin HCl 500 mg [Glucophage 500 MG] 1,000 mg PO BID Digoxin 0.125 mg Tablet [Lanoxin 0.125MG TABLET] 0.125 mg PO QAM Famotidine 20 mg [Pepcid 20 MG] 20 mg PO QAM Losartan/Hydrochlorothiazide [Losartan-Hctz 50-12.5 mg Tab] 1 tab PO DAILY Insulin Aspart [NovoLOG Insulin] 8 unit SQ UD Cholecalciferol (Vitamin D3) [Vitamin D3] 3,000 unit PO DAILY Calcium Carbonate/Vitamin D3 [Calcium 600 + Vit D Caplet] 1 each PO HS PANTOPRAZOLE 40 mg Tablet [Protonix 40MG Tablet] 40 mg PO QAM Loratadine 10 mg [Claritin 10 mg] 10 mg PO QAM Gabapentin [Neurontin] 300 mg PO TID Duloxetine HCl 30 mg [Cymbalta 30 MG Capsule] 90 mg PO QAM Naproxen 500 mg [Naprosyn 500 MG] 500 mg PO BID Aspirin EC 81 mg [Ecotrin 81 mg] 81 mg PO QAM Atorvastatin Calcium [Lipitor] 10 mg PO QPM Alprazolam 0.25 mg [xanAX 0.25 MG] 0.25 mg PO HS Carvedilol 12.5 mg [Coreg 12.5 mg] 12.5 mg PO BID Instructions: Oxygen Therapy, Adult, Urinary Tract Infection, Adult (DC), Chest Pain (DC) Additional Instructions: DISCHARGE WITH HOME O2 @ 2L NC. (PER [facility]) Follow up with: CHASITY BLACKBURN MD [Primary Care Provider] - 09/27/17 9:45 am (at [facility] ) Forms: Discharge Instructions
== END 2017-09-23 14:10 | disposition home or self-care (01) ==
LOC: ED 13:47 → MED SURG 18:45
PROVIDERS: ADMIT General Practice; ATTEND General Practice
DX: N12 Tubulo-interstitial nephritis, not specified as acute or chronic (principal); R07.9 Chest pain, unspecified; E11.9 Type 2 diabetes mellitus without complications; Z79.4 Long term (current) use of insulin; I10 Essential (primary) hypertension; R09.02 Hypoxemia
CPT/HCPCS: 36000; 36415; 71045; 74177; 80053; 80061; 81000; 82550; 82962; 83036; 83721; 83880; 84484; 85025; 85379; 85610; 85730; 93005; 93041; 93268; 94760; 96360; 96374; 99285; G0008; G0378; J1885; J1956; J2270; J2405; 90682; A9270-GY

== ENCOUNTER 2021-01-26 08:22 | Day surgery (SDC) | payer BC ==
--- NOTE | 2021-01-23 13:11 | HP ---
DATE OF SURGERY: 01/26/2021 HISTORY OF PRESENT ILLNESS: The patient is a 55 year-old having pain radiating up towards the chest and epigastric pain from under the left breast area. She has history of esophageal dilatation in the past. Upper esophagus feels like food gets stuck at times. She had been on some Reglan in the past that helped some according to the patient. PAST MEDICAL HISTORY: Diabetes. Fibromyalgia. Spinal stenosis. Scoliosis. Osteoarthritis. Hypertension. Chronic kidney disease. PAST SURGICAL HISTORY: Cholecystectomy. Thyroidectomy. Hysterectomy. MEDICATIONS: Coreg, losartan/hydrochlorothiazide. ALLERGIES: NKDA. FAMILY HISTORY: Congestive heart failure, cancer, hypertension, diabetes. SOCIAL HISTORY: No smoking or alcohol abuse. REVIEW OF SYSTEMS: Fourteen systems reviewed. No chest pain or palpitations. Other systems negative or noncontributory as above and per preadmission questionnaire. PHYSICAL EXAMINATION: GENERAL: No acute distress. HEENT: Sclerae nonicteric. NECK: No JVD. CHEST: Equal excursion, nonlabored breathing. CVS: Regular rate and rhythm. ABDOMEN: Soft. No peritoneal signs. EXTREMITIES: No significant edema. NEURO: Alert, oriented, moving extremities symmetrically. PSYCH: Appropriate mood and affect. IMPRESSION: Some dysphagia, some epigastric pain of unclear etiology. I feel the patient would benefit from EGD possible biopsy possible dilatation depending on operative findings. Risks and benefits explained in detail including but not limited to bleeding or infection, risk of bowel injury or perforation possibly requiring open procedure, risk of missed or nondiagnosis or incomplete exam possibly requiring barium swallow, other studies or procedures, possibility of dilatation performed may need it repeated again down the road. She understands it could be more of a functional or neurologic issue and dilatation may not improve her swallowing. She understands as well as general risk of anesthesia, deep vein thrombosis, pulmonary embolism, pneumonia, remote risk of perforation possibly requiring major procedure. She understands all the above as well as possible no relief of her symptoms. She understands and agrees to the planned procedure, will proceed with EGD possible biopsy possible dilatation as an outpatient. The patient does have follow up with GI who is following her from the colonoscopy standpoint.
[2021-01-26] MEDS ORDERED: Lactated Ringers 1,000 ML IV SCH (08:30)
[2021-01-26] MEDS ORDERED: Lactated Ringers 1,000 ML IV ONE (08:31)
[2021-01-26] MEDS ORDERED: DIPRIVAN 200 MG/20 ML IV ONE (10:06)
[2021-01-26] MEDS ORDERED: ROBINUL ONE (10:06)
[2021-01-26] MEDS ORDERED: Ketamine HCl 50 MG/ML ONE (10:07)
[2021-01-26 11:41] VITALS: O2SAT 95
[2021-01-26 12:22] VITALS: BP 123/70; PULSE 84
--- NOTE | 2021-01-26 15:32 | OP ---
SURGERY DATE/TIME: 01/26/2021 1039 PREOPERATIVE DIAGNOSIS: History of some epigastric pain, history of some dysphagia. POSTOPERATIVE DIAGNOSES: 1) Mild erosive gastritis, some food particles in the stomach question gastroparesis. 2) Short segment question of distal gastroesophagitis versus early Talbot's versus normal variation of gastroesophageal junction distal esophagus. 3) Symptomatic proximal esophageal narrowing and spasm. PROCEDURES: 1) EGD with cold biopsy of small bowel for sprue. 2) Cold biopsy of antrum for Helicobacter pylori. 3) Cold biopsy gastric body ulcer evaluate for path and inflammation. 4) Cold biopsy distal esophagus to evaluate for early Talbot's versus normal variation of gastroesophageal junction versus early distal gastroesophagitis. 5) Proximal esophageal balloon dilatation (size 20 balloon dilator). SURGEON: Dr. Phillip Talbert. ANESTHESIA: MAC. ESTIMATED BLOOD LOSS: Minimal. INDICATIONS: As noted above. Risks and benefits explained in detail and not limited to and consent obtained. DESCRIPTION OF PROCEDURE AND FINDINGS: The patient is taken to the operating room. MAC anesthesia introduced. After official time out and no disagreement with planned procedure, a bite block positioned. Video gastroscope passed down the oropharynx. There was a little bit of narrowing and spasm in the proximal esophagus where she was having symptoms with things getting stuck. There were no obvious mass or lesion to biopsy but as she is having symptoms it was felt this warranted dilatation at the end of the procedure. The scope was able to be just passed past through this area to the gastroesophageal junction to the patent pylorus, to the second and third portion of the duodenum. Third, second and first portions of the duodenum were fairly grossly unremarkable. Cold biopsy is taken to evaluate for celiac sprue given her symptom complaints. Good hemostasis noted. Scope pulled back in the stomach. She did have some solid food particles in there whether she had gastroparesis related to her diabetes, question whether NPO status. She did have some petechial hemorrhages and some mild erosive gastritis. Cold biopsy is taken. Good hemostasis noted in the antrum. On retroflex the gastroesophageal junction seemed to be fairly snug against the scope. No signs of any large hiatal hernia visible endoscopically. The scope is straightened. Proximal stomach and proximal gastric body had some increased erythema. Cold biopsy taken for path and evaluation of this area. Good hemostasis noted. Scope pulled back in the distal esophagus. Gastroesophageal junction 40 cm. There was a fingerlette salmon-pink mucosa extending upwards in the esophagus a little bit whether this is a normal variation of gastroesophageal junction versus early Talbot's versus early distal gastroesophagitis cold biopsies taken. Good hemostasis is noted. The remainder of the esophagus. No signs of any obvious mass or lesion. More proximal esophagus had narrowed area but no obvious lesion to biopsy. It was felt this warranted dilatation. Scope passed back down in the stomach. A 20 balloon catheter carefully inserted and then pulled back up to the proximal esophageal narrowed area where it was carefully inflated, first stage 30 seconds, second stage 30 seconds, final stage size 20 balloon dilator for 2 minutes. Balloon catheter then released and withdrawn. The scope much more easily passed through this area back into the stomach slowly and carefully withdrawn. There was no evidence of any full thickness issues or injury secondary to dilatation. The patient tolerated the procedure well. Findings discussed with a family member over the phone. I will see her back in the office next week. Continue clear liquids for four hours and advance diet as tolerated. Avoid NSAID's, aspirin or blood thinners over the next seven days if okay with the medical doctor.
== END 2021-01-26 11:55 | disposition home or self-care (01) ==
LOC: SDC 08:22
PROVIDERS: ATTEND Surgery
DX: K29.70 Gastritis, unspecified, without bleeding (principal); K20.90 Esophagitis, unspecified without bleeding; K22.2 Esophageal obstruction; K22.4 Dyskinesia of esophagus; E11.9 Type 2 diabetes mellitus without complications; I10 Essential (primary) hypertension; Z79.899 Other long term (current) drug therapy
CPT/HCPCS: 82947; 88305; J2704

== ENCOUNTER 2025-05-30 20:22 | Emergency (ER) | payer BC, OTHER ==
[2025-05-30 20:30] VITALS: TEMP 97.9
[2025-05-30] MEDS: HUMULIN R IV ONE ×2 (21:05→23:01)
[2025-05-30] MEDS ORDERED: HUMULIN R ONE ×2 (21:06→23:01)
[2025-05-30 21:08] LABS: BASOPHIL % 1.1 % (0.1-1.2); Basophil (Absolute #) 0.05 x10^3/uL (0.01-0.08); Eosinophil (Absolute #) 0.10 x10^3/uL (0.04-0.36); Hematocrit 37.8 % (34.1-44.9); Hemoglobin 13.4 g/dL (11.2-15.7); IMMATURE GRAN # 0.01 x10^3u/L (0.001-0.031); IMMATURE GRAN % 0.2 % (0.001-0.429); Lymphocyte (Absolute #) 0.90 x10^3/uL (1.18-3.74); Mean Corpuscular Hemoglobin 34.1 pg (25.6-32.2); Mean Corpuscular Hgb Concent. 35.4 g/dL (32.2-35.5); Monocyte (Absolute #) 0.44 x10^3/uL (0.24-0.86); NUCLEATED RBC # 0.00 x10^3u/L (0.00-0.012); NUCLEATED RBC % 0.0 % (0.00-0.2); Platelet Count 143 x10^3/uL (182-369); Red Blood Count 3.93 x10^6/uL (3.93-5.22); White Blood Count 4.7 x10^3/uL (3.98-10.04)
--- NOTE | 2025-05-30 21:12 | ERPHSYRPT ---
- History of Present Illness Time Seen by Provider: 05/30/25 20:50 Source: patient Exam Limitations: no limitations Patient Subjective Stated Complaint: abnormal labs from visit with [employer] today Triage Nursing Assessment: Pt drove herself to [facility] after a call from her [employer] to come in for abnormal labs from her visit today. Pt states her BS was 569. Pt informed me that she didn't take any insulin prior to coming. Pt normally wears a Dexcom and has ran out of the sensors, and thought she had more. Pt states, "My BS has been running an average of 360". Pt has a couple sores/scabs to front of left chest/breast area, has 4 scabs to back of neck and has an open wound to left posterior hip/lower back area. Her [employer] cultured it today. Physician History: This is a 60-year-old white female patient brought to the emergency department by private vehicle and is a patient nurse practitioner Sivakumar who had labs drawn approximately 330 earlier today I reviewed those outside laboratory data results. Of significance the abnormal levels show a sodium of 126 and a blood glucose of 586. The patient does have chronic renal disease and sees Dr. Romeo for this condition. Patient was being scheduled for bone biopsy of her left hip and they ordered the labs to evaluate the renal function. Because of the abnormal levels of sodium and glucose, patient was sent to the emergency department for further evaluation and management. The lab draws were performed approximately 1530 the patient did not arrive till approximately 8:30 PM. Patient states that she has had a history of DKA in November 2024. Today she was nauseated and could not find the next Dexcom to place on her for monitoring. Therefore, she did not want to provide herself with any insulin today until she could determine what that value was and that she was eating well. Patient denies chest pain. Patient denies shortness of breath. Patient denies abdominal pain. Patient does have a history of diabetes, hypertension, depression, hypothyroidism and gastroesophageal reflux disease. Timing/Duration: today Severity: mild Associated Symptoms: nausea, weakness, No vomiting, No abdominal pain, No shortness of breath, No diaphoresis, No chest pain Allergies/Adverse Reactions: adhesive tape Allergy (Intermediate, Verified 05/30/25 20:30) Home Medications: Digoxin 0.125 mg Tablet [Lanoxin 0.125MG TABLET] 0.125 mg PO QAM 03/24/14 [History] Famotidine 20 mg [Pepcid 20 MG] 20 mg PO HS 09/17/13 [History] Calcium Carbonate/Vitamin D3 [Calcium 600-Vit D3 400 Caplet] 1 each PO DAILY 09/19/17 [History] Carvedilol 12.5 mg [Coreg 12.5 mg] 12.5 mg PO BID 09/19/17 [History] Duloxetine HCl 30 mg [Cymbalta 30 MG Capsule] 90 mg PO QAM 09/19/17 [History] Insulin Aspart [NovoLOG Insulin] 50 unit SQ UD 09/19/17 [History] PANTOPRAZOLE 40 mg Tablet [Protonix 40MG Tablet] 40 mg PO QAM 09/19/17 [History] Buspirone HCl 7.5 mg PO BID 01/21/21 [History] Cyclobenzaprine HCl 10 mg PO HS PRN PRN 01/21/21 [History] Levothyroxine Sodium 150 mcg PO DAILY 01/21/21 [History] Rosuvastatin Calcium [Crestor] 10 mg PO HS 01/21/21 [History] Albuterol Sulfate [Proair Respiclick] 2 puffs IH Q4-6HPRN PRN 05/30/25 [History] Allopurinol 100 mg [Zyloprim 100 mg] 1 tab PO DAILY 05/30/25 [History] Cetirizine HCl [Zyrtec] 5 mg PO DAILY 05/30/25 [History] Ferrous Sulfate 325 mg PO BID 05/30/25 [History] Fluticasone/Vilanterol [Breo Ellipta 100-25 Mcg Inhalr] 2 puffs IH DAILY 05/30/25 [History] Furosemide 40 mg PO DAILY 05/30/25 [History] Hydrocodone/Acetaminophen [Hydrocodon-Acetaminophen 5-325] 1 tab PO BID PRN PRN 05/30/25 [History] Insulin Aspart (Niacinamide) [Fiasp 100 Unit/ml Vial] 50 units SQ TIDWM 05/30/25 [History] Insulin Degludec [Tresiba] 150 units SQ DAILY 05/30/25 [History] Lactulose [Enulose] 75 ml PO TID 05/30/25 [History] Levocetirizine Dihydrochloride [24Hr Allergy Relief] 5 mg PO HS 05/30/25 [History] Magnesium Citrate and Oxide [Magnesium] 500 mg PO HS 05/30/25 [History] Potassium Chloride 10 meq PO DAILY 05/30/25 [History] Pregabalin [Lyrica 150Mg] 1 cap PO HS 05/30/25 [History] Pregabalin [Lyrica 75 mg Cap] 1 cap PO DAILY 05/30/25 [History] Ranolazine 500 MG [Ranexa 500 MG] 1 tab PO BID 05/30/25 [History] Spironolactone 50 mg PO BID 05/30/25 [History] Triamcinolone Acetonide [Nasacort] 2 puffs IH DAILY 05/30/25 [History] Vibegron [Gemtesa] 1 tab PO DAILY 05/30/25 [History] Vitamin E 400 Units [Vitamin E 400 UNIT SOFTGEL] 1 cap PO DAILY 05/30/25 [History] Hx Tetanus, Diphtheria Vaccination/Date Given: Yes Hx Influenza Vaccination/Date Given: No Hx Pneumococcal Vaccination/Date Given: Yes Travel Risk - International Travel Have you traveled outside of the country in past 3 weeks: No - Emerging Infectious Disease Are you exhibiting symptoms associated with any current EIDs: No - Review of Systems Constitutional: Weakness Eyes: No Symptoms (Mild) Ears, Nose, & Throat: No Symptoms Respiratory: No Symptoms Cardiac: No Symptoms Abdominal/Gastrointestinal: Nausea, Appetite Changes, No Abdominal Pain, No Vomiting Genitourinary Symptoms: No Symptoms Musculoskeletal: No Symptoms Skin: No Symptoms Neurological: No Symptoms Psychological: No Symptoms Endocrine: No Symptoms Hematologic/Lymphatic: No Symptoms Immunological/Allergic: No Symptoms All Other Systems: Reviewed and Negative - Past Medical History Pertinent Past Medical History: Yes Neurological History: No Pertinent History ENT History: No Pertinent History Cardiac History: Deep Vein Thrombosis, Hypertension Respiratory History: Sleep Apnea Endocrine Medical History: Diabetes Type II, Hypothyroidism Musculoskeletal History: No Pertinent History GI Medical History: GERD, Hernia History: No Pertinent History Psycho-Social History: No Pertinent History Female Reproductive Disorders: No Pertinent History Other Medical History: Follows Dr. Thomas for hx of DVT and HTN. Hx of acid reflux and hiatal hernia. IDDM. Wears O2 2L n/c aat. - Past Surgical History Past Surgical History: Yes Neuro Surgical History: No Pertinent History Cardiac: Cardiac Catheterization Respiratory: Lobectomy Gastrointestinal: Cholecystectomy, Other Genitourinary: No Pertinent History Musculoskeletal: Orthopedic Surgery, Other Female Surgical History: Hysterectomy Other Surgical History: hx of thyroidectomy. Hc of EGD's and colonoscopy, rt total knee replacement. Upper lobe of left lung removed. Back surgery. - Social History Smoking Status: Never smoker Exposure to second hand smoke: Yes Drug Use: none - Social Determinants of Health Will the patient participate in the screening: Yes Do you worry about a steady place to live?: No Do you have any problems with any of the following?: No known problems In the past 12 months,have you had to go without utilities?: No Transportation Issues: No Has anyone in your support network made you feel unsafe?: No Have you or anyone in your house had to go w/o enough food: No - Nursing Vital Signs Nursing Vital Signs: Initial Vital Signs Temperature 97.9 F 05/30/25 20:29 Pulse Rate 82 05/30/25 20:29 Respiratory Rate 18 05/30/25 20:29 Blood Pressure 136/78 05/30/25 20:29 O2 Sat by Pulse Oximetry 95 05/30/25 20:29 Pain Scale Pain Intensity 0 - Physical Exam General Appearance: no apparent distress, alert Eye Exam: PERRL/EOMI, eyes nml inspection Ears, Nose, Throat Exam: normal ENT inspection, moist mucous membranes Neck Exam: normal inspection, non-tender, supple, full range of motion Respiratory Exam: normal breath sounds, lungs clear, airway intact, No chest tenderness, No respiratory distress Cardiovascular Exam: regular rate/rhythm, normal heart sounds, normal peripheral pulses Gastrointestinal/Abdomen Exam: soft, normal bowel sounds, No tenderness Pelvic Exam: not done Rectal Exam: not done Back Exam: normal inspection, normal range of motion, No CVA tenderness, No vertebral tenderness Extremity Exam: normal inspection, normal range of motion, pelvis stable Neurologic Exam: alert, oriented x 3, cooperative, cattle killer II-XII nml as tested, normal mood/affect, nml cerebellar function, nml station & gait, sensation nml Skin Exam: normal color, warm, dry Lymphatic Exam: No adenopathy SpO2 Interpretation: normal SpO2: 98 O2 Delivery: Room Air - Course Nursing assessment & vital signs reviewed: Yes Ordered Tests: Active Orders 24 hr Category Date Time Status Ob Gyn Physician Assistant STAT Care 05/30/25 20:45 Active IV Insertion STAT Care 05/30/25 20:44 Active Pulse Oximetry (ED) STAT Care 05/30/25 20:44 Active CBC W DIFF Stat Lab 05/30/25 20:55 Completed CMP Stat Lab 05/30/25 20:55 Completed CULTURE,URINE Stat Lab 05/30/25 22:05 Received ETHYL ALCOHOL Stat Lab 05/30/25 20:55 Completed Lactic Acid Stat Lab 05/30/25 20:53 Completed MAGNESIUM Stat Lab 05/30/25 20:55 Completed POCT GLUCOSE Stat Lab 05/30/25 20:41 Completed POCT GLUCOSE Stat Lab 05/30/25 22:40 Completed UA W/RFX UR CULTURE Stat Lab 05/30/25 22:05 Completed Medication Summary Generic Name Dose Route Start Last Admin Trade Name Freq PRN Reason Stop Dose Admin Ceftriaxone Sodium 1 gm in 100 mls @ 200 mls/hr 05/30/25 22:37 05/30/25 22:47 Rocephin 1 Gm / 100 Ml Nacl IV 05/30/25 23:06 200 mls/hr STAT ONE 200 mls/hr Administration Lactated Ringer's 500 mls @ 500 mls/hr 05/30/25 22:40 Lactated Ringers IV 05/30/25 23:39 .Q1H ONE Discontinued Medications Generic Name Dose Route Start Last Admin Trade Name Freq PRN Reason Stop Dose Admin Sodium Chloride 1,000 mls @ 999 mls/hr 05/30/25 20:44 05/30/25 21:58 Sodium Chloride 0.9% 1000 Ml IV 05/30/25 21:44 Infused .Q1H1M STA Infusion Sodium Chloride Confirm 05/30/25 20:51 Sodium Chloride 0.9% 1000 Ml Administered 05/30/25 20:52 Dose 1,000 mls @ ud .ROUTE .STK-MED ONE Sodium Chloride 1,000 mls @ 999 mls/hr 05/30/25 21:45 05/30/25 21:58 Sodium Chloride 0.9% 1000 Ml IV 05/30/25 22:45 999 mls/hr .Q1H1M STA Administration Sodium Chloride Confirm 05/30/25 21:56 Sodium Chloride 0.9% 1000 Ml Administered 05/30/25 21:57 Dose 1,000 mls @ ud .ROUTE .STK-MED ONE Ceftriaxone Sodium Confirm 05/30/25 22:44 Rocephin 1 Gm / 100 Ml Nacl Administered 05/30/25 22:45 Dose 1 gm in 100 mls @ ud IV .STK-MED ONE Insulin Human Regular 18 unit 05/30/25 21:02 05/30/25 21:05 Insulin Regular, Human 1 Unit IV 05/30/25 21:03 18 unit STAT ONE Administration Insulin Human Regular Confirm 05/30/25 21:06 Insulin Regular, Human 1 Unit Administered 05/30/25 21:07 Dose 18 unit .ROUTE .STK-MED ONE Insulin Human Regular 5 unit 05/30/25 22:51 Insulin Regular, Human 1 Unit IV 05/30/25 22:52 STAT ONE Lab/Rad Data: Laboratory Result Diagrams 05/30/25 20:55 05/30/25 20:55 Laboratory Results 05/30/25 05/30/25 05/30/25 Range/Units 22:40 22:05 20:55 WBC (3.98-10.04) x10^3/uL RBC (3.93-5.22) x10^6/uL Hgb (11.2-15.7) g/dL Hct (34.1-44.9) % MCV (79.4-94.8) fL MCH (25.6-32.2) pg MCHC (32.2-35.5) g/dL RDW (11.7-14.4) % Plt Count (182-369) x10^3/uL MPV (9.4-12.3) fL Gran % (34.0-71.1) % Immature Gran % (Auto) (0.001-0.429) % Nucleat RBC Rel Count (0.00-0.2) % Eos # (Auto) (0.04-0.36) x10^3/uL Immature Gran # (Auto) (0.001-0.031) x10^3u/L Absolute Lymphs (auto) (1.18-3.74) x10^3/uL Absolute Monos (auto) (0.24-0.86) x10^3/uL Absolute Nucleated RBC (0.00-0.012) x10^3u/L Lymphocytes % (19.3-51.7) % Monocytes % (4.7-12.5) % Eosinophils % (0.7-5.8) % Basophils % (0.1-1.2) % Absolute Granulocytes (1.56-6.13) x10^3/uL Basophils # (0.01-0.08) x10^3/uL Sodium 127 L (135-145) mmol/L Potassium 4.1 (3.5-5.1) mmol/L Chloride 93 L (98-107) mmol/L Carbon Dioxide 23 (22-30) mmol/L Anion Gap 14.2 (5-15) MEQ/L BUN 16 (7-17) mg/dL Creatinine 0.85 (0.52-1.04) mg/dL Estimated GFR 78.4 ML/MIN Glucose 564 H* (74-106) mg/dL POC Glucometer 374 H (50 to 500) mg/dL Lactic Acid (0.4-2.0) Calcium 9.0 (8.4-10.2) mg/dL Magnesium 2.0 (1.6-2.3) mg/dL Total Bilirubin 1.80 H (0.2-1.3) mg/dL AST 26 (14-36) U/L ALT 29 (0-35) U/L Alkaline Phosphatase 103 (38-126) U/L Serum Total Protein 6.6 (6.3-8.2) g/dL Albumin 3.9 (3.5-5.0) g/dL Urine Color Yellow (Yellow) Urine Appearance Clear (Clear) Urine pH 6.5 (4.6-8.0) Ur Specific [place] >=1.030 A (1.005-1.030) Urine Protein Negative (Negative) Urine Glucose (UA) >=1000 A (Negative) mg/dL Urine Ketones Negative (Negative) Urine Blood Negative (Negative) Urine Nitrite Negative (Negative) Urine Bilirubin Negative (Negative) Urine Urobilinogen 1.0 A (0.2) mg/dL Ur Leukocyte Esterase Trace A (Negative) U Hyaline Cast (Auto) NONE SEEN (0-2) /LPF Urine Microscopic RBC 0-2 (0-5) /HPF Urine Microscopic WBC 51-100 A (0-5) /HPF Ur Epithelial Cells None Seen (None Seen) /HPF Urine Bacteria Many A (None Seen) /HPF Urine Culture Reflexed YES (NO) Ethyl Alcohol < 10 (0-10) mg/dL 05/30/25 05/30/25 05/30/25 Range/Units 20:55 20:53 20:41 WBC 4.7 (3.98-10.04) x10^3/uL RBC 3.93 (3.93-5.22) x10^6/uL Hgb 13.4 (11.2-15.7) g/dL Hct 37.8 (34.1-44.9) % MCV 96.2 H (79.4-94.8) fL MCH 34.1 H (25.6-32.2) pg MCHC 35.4 (32.2-35.5) g/dL RDW 12.0 (11.7-14.4) % Plt Count 143 L (182-369) x10^3/uL MPV 10.2 (9.4-12.3) fL Gran % 68.3 (34.0-71.1) % Immature Gran % (Auto) 0.2 (0.001-0.429) % Nucleat RBC Rel Count 0.0 (0.00-0.2) % Eos # (Auto) 0.10 (0.04-0.36) x10^3/uL Immature Gran # (Auto) 0.01 (0.001-0.031) x10^3u/L Absolute Lymphs (auto) 0.90 L (1.18-3.74) x10^3/uL Absolute Monos (auto) 0.44 (0.24-0.86) x10^3/uL Absolute Nucleated RBC 0.00 (0.00-0.012) x10^3u/L Lymphocytes % 19.0 L (19.3-51.7) % Monocytes % 9.3 (4.7-12.5) % Eosinophils % 2.1 (0.7-5.8) % Basophils % 1.1 (0.1-1.2) % Absolute Granulocytes 3.24 (1.56-6.13) x10^3/uL Basophils # 0.05 (0.01-0.08) x10^3/uL Sodium (135-145) mmol/L Potassium (3.5-5.1) mmol/L Chloride (98-107) mmol/L Carbon Dioxide (22-30) mmol/L Anion Gap (5-15) MEQ/L BUN (7-17) mg/dL Creatinine (0.52-1.04) mg/dL Estimated GFR ML/MIN Glucose (74-106) mg/dL POC Glucometer 533 H* (50 to 500) mg/dL Lactic Acid 3.0 H (0.4-2.0) Calcium (8.4-10.2) mg/dL Magnesium (1.6-2.3) mg/dL Total Bilirubin (0.2-1.3) mg/dL AST (14-36) U/L ALT (0-35) U/L Alkaline Phosphatase (38-126) U/L Serum Total Protein (6.3-8.2) g/dL Albumin (3.5-5.0) g/dL Urine Color (Yellow) Urine Appearance (Clear) Urine pH (4.6-8.0) Ur Specific Eden (1.005-1.030) Urine Protein (Negative) Urine Glucose (UA) (Negative) mg/dL Urine Ketones (Negative) Urine Blood (Negative) Urine Nitrite (Negative) Urine Bilirubin (Negative) Urine Urobilinogen (0.2) mg/dL Ur Leukocyte Esterase (Negative) U Hyaline Cast (Auto) (0-2) /LPF Urine Microscopic RBC (0-5) /HPF Urine Microscopic WBC (0-5) /HPF Ur Epithelial Cells (None Seen) /HPF Urine Bacteria (None Seen) /HPF Urine Culture Reflexed (NO) Ethyl Alcohol (0-10) mg/dL - Progress Progress: improved Progress Note: 05/30/25 21:14 My medical decision making and the assignment of moderate to high complexity of this patient's medical issue today is based on review of the patient's past medical history, review the patient's medication list, reviewed patient drug allergy list, history of stenosis and physical findings on examination. The workup in this patient includes placement of an intravenous line, infusion of normal saline solution, stat blood glucose, CBC, CMP, magnesium level, urinalysis. Differential diagnosis includes but is not limited to dehydration, ketonuria, DKA, hyperglycemia, hyponatremia 05/30/25 22:37 I interpreted the patient's laboratory data results. Based on the laboratory data results, the patient has hyperglycemia and not DKA. There are no ketones in her urine. She also has a urinary tract infection. Patient has an elevated lactic acid level, normal CO2 and normal anion gap. 05/30/25 22:54 The repeat [id number] glucose level is 374. Patient received 1 g of intravenous Rocephin. We will change the patient's oral antibiotics from doxycycline to cefdinir. This will cover both skin infections and urinary tract infections. The doxycycline will not give, in my opinion, adequate urinary tract infection coverage Counseled pt/family regarding: lab results, diagnosis Medical Desision Making - Diagnostic Testing Diagnostic test were ordered, analyzed, and reviewed by me: Yes - Risk of complications Low Risk: Low risk of morbidity from additional dx testing or treatment The pt has a mod risk of morbidity or mortality based on: Need for prescription drug management - Departure Departure Disposition: Home Clinical Impression: Hyperglycemia, UTI (urinary tract infection) Condition: Stable Critical Care Time: No Referrals: SAAD THOMSON NP [Primary Care Provider, UNKNOWN] - Follow up/PCP as directed Additional Instructions: Monitor your blood sugar closely. Use your sliding scale as instructed by your original provider. Take your antibiotics as prescribed. Call your prescribing provider tomorrow, 05/31/2025, to make arrangements for follow-up appointment for further evaluation and management. Did not fill your doxycycline medications. Use cefdinir to cover both skin infection and urinary tract infection. Let your prescriber know that you did not knot picker cloth your doxycycline and it was recommended to use the cefdinir antibiotics. Prescriptions: Cefdinir 300 mg PO BID #14 cap
[2025-05-30 21:21] LABS: Calcium 9.0 mg/dL (8.4-10.2); Carbon Dioxide 23 mmol/L (22-30); Creatinine 1 0.85 mg/dL (0.52-1.04); EST GLOMERULAR FILTRATION RATE 78.4 ML/MIN; ETHYL ALCOHOL < 10 mg/dL (0-10); Potassium 4.1 mmol/L (3.5-5.1); SGOT/AST 26 U/L (14-36); SGPT/ALT 29 U/L (0-35); Total Protein 6.6 g/dL (6.3-8.2)
[2025-05-30 21:33] LABS: Glucose 564 mg/dL (74-106)
[2025-05-30 22:31] LABS: Glucose, Urine >=1000 mg/dL (Negative); Protein,Urine Dip Negative (Negative); RBC 0-2 /HPF (0-5); WBC 51-100 /HPF (0-5)
[2025-05-30] MEDS ORDERED: ROCEPHIN 1 GM / 100 ML NaCl 1 GM/100 ML IVPB IV ONE (22:44)
[2025-05-30] MEDS: ROCEPHIN 1 GM / 100 ML NaCl 1 GM/100 ML IVPB IV ONE (22:47)
[2025-05-30] MEDS: Lactated Ringers 500 ML IV ONE (23:10)
[2025-05-30 23:36] VITALS: O2SAT 100
[2025-05-31 00:02] VITALS: BP 133/83; PULSE 77; RESP 24
== END 2025-05-31 00:02 | disposition home or self-care (01) ==
LOC: ED 20:22
DX: E11.65 Type 2 diabetes mellitus with hyperglycemia (principal); N39.0 Urinary tract infection, site not specified; E11.22 Type 2 diabetes mellitus with diabetic chronic kidney disease; I12.9 Hypertensive chronic kidney disease with stage 1 through stage 4 chronic kidney disease, or unspecified chronic kidney disease; N18.9 Chronic kidney disease, unspecified; Z79.4 Long term (current) use of insulin; Z79.891 Long term (current) use of opiate analgesic; Z79.899 Other long term (current) drug therapy